=== PATIENT | male | born 1990 | race Caucasian/White ===

== ENCOUNTER 2024-09-22 08:44 | Emergency (ER) | payer OTHER, SELFPAY ==
[2024-09-22] VITALS (8 sets, daily range): BP systolic 114–118; BP diastolic 65–90; PULSE 55–74; RESP 12–20; TEMP 36.6; O2SAT 96–100
--- NOTE | 2024-09-22 08:50 | ECG_ITS ---
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
--- NOTE | 2024-09-22 09:08 | W.ED.DIZZY ---
HPI - Dizziness General: Chief Complaint: Dizziness Stated Complaint: Sent from [facility], N,V,Dizzy Time Seen by Provider: 09/22/24 08:57 Source: patient Mode of arrival: ambulatory Limitations: no limitations History of Present Illness: HPI Narrative: 33yo male presents with significant other for evaluation of dizziness. Patient reports that he has had increasing dizziness over the past couple of weeks, but it is worsened significantly in the past few days. Patient reports the dizziness started while he was sick with a GI illness. States that he did have several episodes of vomiting. Now he is still having vomiting, but it seems to be related to the dizziness itself. Patient denies fever, cough, congestion, abdominal pain, fall, trauma, known injury, chronic medical problems, daily medications. Associated symptoms: Reports nausea and vomiting; Denies chest pain, chills or headache(s) Associated neuro symptoms: Deny confusion Related Data Previous Rx's Medication Instructions Recorded meclizine 25 mg tablet 25 mg PO TID PRN dizziness #30 tabs 09/22/24 Allergies Allergy/AdvReac Type Severity Reaction Status Date / Time bee venom protein (honey bee) Allergy Severe ALGY-Anaphy Verified 06/23/21 09:36 laxis Review of Systems Const: Denies: fever(s) or chills Eyes: Reports: blurry vision (intermittently) Card: Denies: chest pain Resp: Denies: dyspnea GI: Reports: nausea and vomiting : Denies: difficulty urinating Neuro: Reports: dizziness; Denies: headache(s), frequent falls, confusion, Slurred speech present or difficulty communicating thoughts [facility] ED PFSH: Medical History (Updated 09/22/24 @ 12:53 by ANDREW Cowart) Foreign body of eyelid, right Retained foreign body of eyelid Social History (Updated 06/23/21 @ 09:38 by Shamika Granger LPN) Smoking and tobacco/nicotine status: current every day tobacco/nicotine user (vape) e-cigarettes Alcohol intake: current Alcohol intake frequency: few times a week Substance/Drug Use: never Marital status: Single Number of children: 0 Current occupational status: employed Physical Exam Const: COMMON NORMALS: no acute distress, patient oriented x3, healthy appearing and alert ORIENTATION/CONSCIOUSNESS: Yes awake OTHER: Patient is sitting reclined on the stretcher in no acute distress. He is able to give history with no difficulty. He is interactive with exam appropriately. Family is at bedside HENMT: COMMON NORMALS: normocephalic and atraumatic HEAD & SCALP: normocephalic and atraumatic TYMPANIC MEMBRANE: TM abnormal TM laterality: bilateral wth effusion serous MOUTH: lip normal Eye: GENERAL EYE: appearance normal, both eyes and all related structures Neck/C-Spine: COMMON NORMALS: full ROM Chest: CHEST: Yes Symmetrical chest wall rise Resp: COMMON NORMALS: normal respiratory effort and clear to auscultation bilaterally EFFORT & INSPECTION: Yes able to speak in complete sentences AUSCULTATION: clear to auscultation bilaterally Cardio: COMMON NORMALS: regular rate and regular rhythm RATE: regular rate RHYTHM: regular rhythm GI: COMMON NORMALS: Soft to palpation PALPATION: Yes Soft to palpation, No Tenderness to palpation present (GI) and No Guarding due to palpation present (GI) Extremity: COMMON NORMALS: full ROM Neuro: COMMON NORMALS: patient oriented x3 and moves all extremities SENSORIUM/ORIENTATION: Yes alert SPEECH: speech normal Psych: COMMON NORMALS: cooperative Course Reevaluation(s): Reevaluation #1: Reevaluated patient. He was still having dizziness with position changes. Discussed all findings with patient and significant other. Will proceed with meclizine and reevaluate shortly thereafter. Discussed likely BPPV and possible eustachian tube disorder for the small amount of fluid behind the TM. Likely discharge. Time: 11:55 Vital Signs: Vital signs: Vital Signs Temperature 97.8 F 09/22/24 08:50 Pulse Rate 67 09/22/24 13:21 Respiratory Rate 13 09/22/24 12:30 Blood Pressure 117/73 09/22/24 13:21 Pulse Oximetry 96 09/22/24 13:21 Oxygen Delivery Me thod Room Air 09/22/24 13:21 MDM - Dizziness Medical Decision Making 33yo male presents with significant other for evaluation of dizziness. Patient reports that he has had increasing dizziness over the past couple of weeks, but it is worsened significantly in the past few days. Patient reports the dizziness started while he was sick with a GI illness. States that he did have several episodes of vomiting. Now he is still having vomiting, but it seems to be related to the dizziness itself. Patient denies fever, cough, congestion, abdominal pain, fall, trauma, known injury, chronic medical problems, daily medications. Patient is nontoxic in appearance. Vital signs are stable. Differential diagnoses include but are not limited to: Electrolyte abnormalities, vertigo, CVA, orthostatic hypotension No leukocytosis or indication of anemia. No electrolyte, renal, or hepatic abnormalities noted. Proceeded with CT scan of the head given that patient is having dizziness with vomiting and blurred vision. CT of the head with no acute abnormalities noted. Discussed these findings with patient and family. Proceeded with meclizine. Patient did still have some dizziness, but was ready to go home. Discussed possibility/likelihood of BPPV. Handout provided with information about BPPV. Discussed with patient importance of following up with primary care. Meclizine prescribed. Discussed use of fluticasone nasal spray and wbfa-ttr-prtjfys decongestants to help with the otitis effusions. Recommend he follow-up with primary care, call either later today or in the morning with an update of symptoms and to discuss to recheck. Advise return to the emergency department if any rapid worsening symptoms, onset of fever associated with worsening, and as needed. Patient and family state understanding and have no further questions or concerns at this time. Differential Diagnosis Likely benign paroxysmal positional vertigo, orthostatic hypotension and cerebrovascular accident Medical Records I reviewed the patient's medical records. Lab Data I reviewed the patient's lab results. 09/22/24 09:01 09/22/24 09: Radiology Impressions Head CT 09/22/24 09:53 IMPRESSION: 1. No evidence of intracranial hemorrhage or mass effect. 2. No acute intracranial findings. Laboratory Results WBC 6.70 10^3/uL (3.29-11.43) 09/22/24 09: RBC 5.30 10^6/uL (3.85-5.65) 09/22/24 09: Hgb 16.40 g/dL (11.27-16.99) 09/22/24 09: Hct 46.5 % (37-53) 09/22/24 09: MCV 87.7 fl (82-101) 09/22/24 09: MCH 30.9 pg (27-33) 09/22/24 09: MCHC 35.3 g/dL (30-55) 09/22/24 09: RDW 11.9 % (12.1-15.1) L 09/22/24 09:01 Plt Count 213 10^3/cmm (157-399) 09/22/24 09:01 MPV 10.5 fL (7.4-10.4) H 09/22/24 09:01 Neut % (Auto) 74.8 % 09/22/24 09:01 Lymph % (Auto) 20.1 % 09/22/24 09:01 Cassia % (Auto) 3.9 % 09/22/24 09:01 Eos % (Auto) 0.4 % 09/22/24 09:01 Baso % (Auto) 0.4 % 09/22/24 09:01 Neut # (Auto) 5.00 10^3/uL (1.8-7.7) 09/22/24 09:01 Lymph # (Auto) 1.4 10^3/uL (0.8-4.8) 09/22/24 09:01 Cassia # (Auto) 0.3 10^3/uL (0.2-0.9) 09/22/24 09:01 Eos # (Auto) 0.0 10^3/uL (0.0-0.8) 09/22/24 09:01 Baso # (Auto) 0.0 10^3/uL (0.0-0.1) 09/22/24 09:01 Nucleated RBC % (auto) 0 % 09/22/24 09:01 Nucleated RBCs # 0.0 /100WBC 09/22/24 09:01 Sodium 140 mmol/L (136-145) 09/22/24 09:01 Potassium 4.4 mmol/L (3.5-5.1) 09/22/24 09:01 Chloride 104 mmol/L (98-107) 09/22/24 09:01 Carbon Dioxide 24 mmol/L (22-29) 09/22/24 09:01 Anion Gap 16.4 (5-19) 09/22/24 09:01 BUN 11 mg/dL (6-20) 09/22/24 09:01 Creatinine 0.9 mg/dL (0.7-1.2) 09/22/24 09:01 GFR Calculation 96.0 mL/min (90-130) 09/22/24 09:01 Glucose 99 mg/dL (65-115) 09/22/24 09:01 Calculated Osmolality 289 mOsm/kg (285-295) 09/22/24 09:01 Calcium 9.7 mg/dL (8.5-10.5) 09/22/24 09:01 Magnesium 1.9 mg/dL (1.7-2.3) 09/22/24 09:01 Total Bilirubin 0.9 mg/dL (0.15-1.2) 09/22/24 09:01 AST 16 U/L (0-40) 09/22/24 09:01 ALT 19 U/L (0-41) 09/22/24 09:01 Alkaline Phosphatase 64 U/L (40-130) 09/22/24 09:01 Total Protein 7.1 g/dL (6.6-8.7) 09/22/24 09:01 Albumin 4.7 g/dL (3.5-5.2) 09/22/24 09:01 Globulin 2.4 g/dL (1.3-4.6) 09/22/24 09:01 All radiology interpretation(s) finalized by discharge Discharge Plan Discharge Patient Disposition: Home Clinical Impression: Vertigo Acute SERVANDO (middle ear effusion) Qualifiers: Laterality: bilateral Qualified Code(s): H65.193 - Other acute nonsuppurative otitis media, bilateral Condition: Stable Prescriptions: New meclizine 25 mg tablet 25 mg PO TID PRN (Reason: dizziness) Qty: 30 0RF Discharge Orders: Discharge ED (Routine); Ordered 09/22/24 Ordered By: Marko Peña Referrals: Christos David [Primary Care Provider] - Discharge Diet: Usual diet Discharge Activity: Increase activity as tolerated Patient Instructions: Vertigo (ED), Fluid In The Ear (Serous Otitis Media) (ED) Activity Restrictions/Additional Instructions: There were no acute abnormalities noted on your labs today and your CT of the head was unremarkable. There were no clear indications as to the cause of the dizziness This is likely vertigo, but you may need to have further testing. Meclizine has been sent to the pharmacy to help with vertigo type symptoms For the fluid in the middle ears, you may use [id number] Flonase nasal spray and potentially vjjv-bes-cimudly decongestant to help with clearance of the fluid Follow-up with primary care, call in 1 to 2 days with an update of symptoms and to discuss her recheck Return to the emergency department if any rapid worsening symptoms and as needed Coding Level of Care Code ED Message Broker Developer for Jackson Huang
[2024-09-22 09:11] LABS: Basophils % 0.4 %; Eosinophils % 0.4 %; Hematocrit 46.5 % (37-53); Lymphocytes # 1.4 10^3/uL (0.8-4.8); Lymphocytes % 20.1 %; Mean Corpuscular HGB Conc 35.3 g/dL (30-55); Mean Corpuscular Hemoglobin 30.9 pg (27-33); Mean Corpuscular Volume 87.7 fl (82-101); Mean Platelet Volume 10.5 fL (7.4-10.4); Monocytes # 0.3 10^3/uL (0.2-0.9); Monocytes % 3.9 %; Neutrophils % 74.8 %; Nucleated Red Blood Cells % 0 %; Platelet Count 213 10^3/cmm (157-399); Red Cell Distribution Width 11.9 % (12.1-15.1)
[2024-09-22 09:25] LABS: Alanine Aminotransferase 19 U/L (0-41); Albumin Level 4.7 g/dL (3.5-5.2); Alkaline Phosphatase 64 U/L (40-130); Anion Gap 16.4 (5-19); Aspartate Amino Transferase 16 U/L (0-40); Blood Urea Nitrogen 11 mg/dL (6-20); Calcium 9.7 mg/dL (8.5-10.5); Carbon Dioxide 24 mmol/L (22-29); Chloride 104 mmol/L (98-107); Creatinine Clr Calc Pharmacy 109.0671; Globulin 2.4 g/dL (1.3-4.6); Glucose 99 mg/dL (65-115); Magnesium 1.9 mg/dL (1.7-2.3); Osmolality Calculated 289 mOsm/kg (285-295); Potassium 4.4 mmol/L (3.5-5.1); Sodium 140 mmol/L (136-145); Total Bilirubin 0.9 mg/dL (0.15-1.2); Total Protein 7.1 g/dL (6.6-8.7)
--- NOTE | 2024-09-22 09:53 | CT_ITS ---
WS: [id number] CT HEAD TECHNIQUE: Noncontrast CT of the head obtained from the skullbase to the vertex. CLINICAL INFORMATION: dizziness, vomiting, blurred vision. COMPARISON: None. DLP: 1068.[address] scans at [facility] use at least one of these dose optimization techniques: automated e xposure control; mA and/or kV adjustment per patient size (includes targeted exams where dose is matc hed to clinical indication); or iterative reconstruction. FINDINGS: No evidence of intracranial hemorrhage or mass effect. Ventricular system and basal cisterns are plummer nt. No extra-axial fluid collections. No evidence of mass or mass effect. Normal stark-white different iation. LEFT maxillary retention cyst. Mastoid air cells are well aerated. Partially visualized LEFT maxillar y retention cyst measures 3.[address]/CT head wo con* [id number] IMPRESSION: 1. No evidence of intracranial hemorrhage or mass effect. 2. No acute intracranial findings.
[2024-09-22] MEDS: meclizine 25 mg tablet 50 MG PO (12:00)
== END 2024-09-22 13:21 | disposition home or self-care (01) ==
PROVIDERS: Emergency Provider Nurse Practitioner; PCP Family Medicine
DX: R42 Dizziness and giddiness (principal); H65.193 Other acute nonsuppurative otitis media, bilateral
CPT/HCPCS: 36415; 70450; 80053; 83735; 85025; 93005; 99284; J8597